=== PATIENT | female | born 1955 | race Caucasian/White ===

== ENCOUNTER 2021-04-11 09:42 | Emergency (ER) | payer MEDICARE, OTHER ==
[~2021-04-11] VITALS: Ht 172.7 cm; Wt 127.0 kg
[2021-04-11] MEDS ORDERED: Tessalon Perle100 MG PO (10:10)
[2021-04-11] MEDS ORDERED: Zithromax250 MG PO (10:10)
== END 2021-04-11 10:35 | disposition home or self-care (01) ==
LOC: ER 09:42
DX: U07.1 COVID-19 (principal); Z88.8 Allergy status to other drugs, medicaments and biological substances; Z88.6 Allergy status to analgesic agent; Z79.899 Other long term (current) drug therapy
CPT/HCPCS: 99284

== ENCOUNTER 2025-05-21 12:23 | Day surgery (SDC) | payer MEDICARE, OTHER ==
[~2025-05-21] VITALS: Ht 172.7 cm; Wt 110.7 kg
[~2025-05-21 12:23] MED LIST: Balanced Salt Epinephrine Irrigation Solution 500 mL IR SCH; Moxifloxacin HCL 0.5 MG/0.1 ML 0.4MLSYR LEFTEYE SCH; NS 500 ML IV ONE; PHENYLEPHRINE\\TROPICAMIDE\\TETRACAINE OPHTHALMIC DILATING SOLN LEFTEYE PRN; Povidone-Iodine 450 DROP/30 ML Solution LEFTEYE SCH; Povidone-Iodine 450 DROP/30 ML Solution ONE; Tessalon Perle100 MG PO; Tetracaine HCl/Pf 0.5% Opth Soln 4 ml ONE; Triamcinolone Inj Susp 40 MG / ML 1ML Vial INJ SCH; Triamcinolone Inj Susp 40 MG / ML 1ML Vial ONE; Zithromax250 MG PO
[2025-05-21] MEDS ORDERED: EUTHYROX125 MCG PO (13:16)
[2025-05-21] MEDS ORDERED: BUSPIRONE HCL30 M1 PO (13:16)
[2025-05-21] MEDS ORDERED: OXYC5 PO (13:17)
[2025-05-21] MEDS ORDERED: NS 500 ML IV ONE (13:28)
[2025-05-21] MEDS ORDERED: Tetracaine HCl 0.5% Opth Soln 15 ml LEFTEYE ONE (13:48)
[2025-05-21] MEDS ORDERED: Midazolam HCl 1MG / ML 2ML Vial ONE (13:49)
[2025-05-21] MEDS ORDERED: FentaNYL Citrate 50 MCG/ML 2 ML Injection ONE (13:51)
[2025-05-21 14:15] VITALS: BP 135/78
== END 2025-05-21 14:43 | disposition home or self-care (01) ==
LOC: ORSCSDS 12:23
PROVIDERS: Ophthalmology
PROC: 08RK3JZ Replacement of Left Lens with Synthetic Substitute, Percutaneous Approach (ICD-10-PCS; principal; 2025-05-21 14:00)
DX: H25.813 Combined forms of age-related cataract, bilateral (principal); Z95.0 Presence of cardiac pacemaker; E03.9 Hypothyroidism, unspecified; E05.00 Thyrotoxicosis with diffuse goiter without thyrotoxic crisis or storm; H40.1190 Primary open-angle glaucoma, unspecified eye, stage unspecified; G47.33 Obstructive sleep apnea (adult) (pediatric); E66.01 Morbid (severe) obesity due to excess calories; Z68.41 Body mass index [BMI] 40.0-44.9, adult; I10 Essential (primary) hypertension; Z79.899 Other long term (current) drug therapy
CPT/HCPCS: J2250; J3010; J3301; J7040; V2632

== ENCOUNTER 2025-05-28 11:11 | Day surgery (SDC) | payer MEDICARE, OTHER ==
[~2025-05-28] VITALS: Ht 172.7 cm; Wt 121.6 kg
[~2025-05-28 11:11] MED LIST changes: +BUSPIRONE HCL30 M1 PO; +EUTHYROX125 MCG PO; -Moxifloxacin HCL 0.5 MG/0.1 ML 0.4MLSYR LEFTEYE SCH; +Moxifloxacin HCL 0.5 MG/0.1 ML 0.4MLSYR RIGHTEYE SCH; +OXYC5 PO; -PHENYLEPHRINE\\TROPICAMIDE\\TETRACAINE OPHTHALMIC DILATING SOLN LEFTEYE PRN; +PHENYLEPHRINE\\TROPICAMIDE\\TETRACAINE OPHTHALMIC DILATING SOLN RIGHTEYE PRN; -Povidone-Iodine 450 DROP/30 ML Solution LEFTEYE SCH; +Povidone-Iodine 450 DROP/30 ML Solution RIGHTEYE SCH
[2025-05-28] MEDS ORDERED: NS 500 ML IV ONE (11:32)
[2025-05-28] MEDS ORDERED: Midazolam HCl 1MG / ML 2ML Vial ONE ×2 (11:49→11:58)
[2025-05-28] MEDS ORDERED: Tetracaine HCl 0.5% Opth Soln 15 ml RIGHTEYE ONE (11:58)
[2025-05-28 12:41] VITALS: BP 116/71
== END 2025-05-28 12:35 | disposition home or self-care (01) ==
LOC: ORSCSDS 11:11
PROVIDERS: Ophthalmology
PROC: 08RJ3JZ Replacement of Right Lens with Synthetic Substitute, Percutaneous Approach (ICD-10-PCS; principal; 2025-05-28 12:30)
DX: H25.811 Combined forms of age-related cataract, right eye (principal); Z96.1 Presence of intraocular lens; R00.1 Bradycardia, unspecified; Z95.0 Presence of cardiac pacemaker; G47.33 Obstructive sleep apnea (adult) (pediatric); K21.9 Gastro-esophageal reflux disease without esophagitis; E66.9 Obesity, unspecified; Z68.41 Body mass index [BMI] 40.0-44.9, adult; E07.9 Disorder of thyroid, unspecified; Z79.899 Other long term (current) drug therapy
CPT/HCPCS: J2250; J3301; J7040; V2632